=== PATIENT | female | born 1990 | race Caucasian/White ===

== ENCOUNTER 2023-07-25 09:26 | Outpatient (CLI) | payer OTHER, SELFPAY ==
--- NOTE | 2023-07-25 09:57 | USCV_ITS ---
Alexandra Miles Age: 32 Gender: F : 1990 Exam Date: 07/25/2023 10:21 Ordering Phys: Asiya Bowens NP Technologist: AURELIA [place] [facility] [place]: cp BP: 121 / 89 HR: 76 Rhythm: Sinus Technical Quality: Adequate MEASUREMENTS (Male / Female) Normal Values 2D ECHO LVOT Diameter 2.0 cm LV Ejection Fraction MOD 2C 71.9 % LV Ejection Fraction 2C AL 71.1 % LA Diameter 3.3 cm RA Systolic Volume 4C AL 50.6 ml RA Systolic Volume 4C MOD 48.0 ml LA Sys Volume AL 70.6 cm cubed LA Sys Volume Index AL 27.1 cm cubed/m squared Aorta at Sinotubular Diameter 2.5 cm IVC Diameter 1.8 cm M-MODE LA Ao Ratio MM 1.6 AV Cusp Separation MM 1.9 cm DOPPLER AV Peak Velocity 103.0 cm/s LVOT Peak Velocity 90.0 cm/s AV Area Cont Eq vti 2.9 cm squared AV Area Cont Eq pk 2.8 cm squared MV Peak Velocity 87.0 cm/s MV Area PHT 3.5 cm squared Mitral E to A Ratio 1.3 TR Peak Velocity 85.0 cm/s TR Peak Gradient 2.9 mmHg TV Peak E Velocity 82.0 cm/s Right Atrial Pressure 3.0 mmHg Pulmonary Artery Systolic Pressu 5.9 mmHg PV Peak Velocity 82.0 cm/s FINDINGS Left Ventricle Normal left ventricular size and systolic function, EF 71%. No regional wall motion abnormalities. Right Ventricle The right ventricle is normal in size and function. Right Atrium The right atrium is normal in size. Left Atrium The left atrium is normal in size. Mitral Valve No gross abnormalities noted Aortic Valve No gross abnormalities noted Tricuspid Valve No gross abnormalities noted Pulmonic Valve No gross abnormalities noted Pericardium Normal pericardium without effusion. Aorta Normal ascending aorta dimension. IVC Normal inferior vena cava. CONCLUSIONS Normal left ventricular size and systolic function, EF 71%. No regional wall motion abnormalities. Normal cardiac chamber sizes No gross valvular abnormalities. There is no pericardial effusion. There are no intracardiac masses. No similar previous studies are available for comparison Dr Amber Mtz MD [facility] (Electronically Signed) Final Date: 26 Jul 2023 20:17 S
== END 2023-07-25 09:27 | disposition home or self-care (01) ==
LOC: RAD 09:26
PROVIDERS: Visit Provider Nurse Practitioner Family
DX: R07.9 Chest pain, unspecified (principal)
CPT/HCPCS: 93306

== ENCOUNTER → 2023-10-14 10:59 | Outpatient (BNVA) | payer OTHER, SELFPAY | PROVIDERS: Referring Provider Nurse Practitioner Family; Visit Provider Internal Medicine Cardiovascular Disease | DX: R07.9 Chest pain, unspecified (principal) | CPT/HCPCS: 93005 ==

== ENCOUNTER 2023-12-26 11:48 | Outpatient (CLI) | payer OTHER, SELFPAY ==
[2023-12-26 12:00] VITALS: BMI 48.6
--- NOTE | 2023-12-26 12:02 | ECG_ITS ---
[facility] 2023[facility]26 Pat Name: Alexandra Miles Department: Room: Gender: Female Rn Travel: : 1990 Requested By: Valerie Alicia Order Number: [id number] Reading MD: VALERIE ALICIA Interpretive Statements Lung unchanged pre/post procedure; Intraprocedure shortess of breath; Symptoms resoled by discharge NOTE: Please note that this is the electrocardiogram portion of the Lexiscan/Sestamibi stress test. The perfusion scan will be documented separately. DATA: Baseline heart rate was 81 beats per minute. Baseline blood pressure was 144/77 millimeters of mercury. Target heart rate was 188. Maximum heart rate achieved was 149. which was 79% of the predicted target heart rate. Maximum blood pressure was 179/93 millimeters of mercury. The reason for ending the test was completion of the protocol. The patient did not experience any symptoms. ELECTROCARDIOGRAM: BASELINE: Sinus rhythm. Normal axis. Interventricular conduction delay, otherwise, no ST-T changes suggestive of ischemia noted. No arrhythmia noted. EXERCISE: After Lexiscan injection, no ST-T changes suggestive of ischemic noted. No arrhythmia noted. CONCLUSION: Please note due to baseline abnormality of the EKG specificity and sensitivity of the EKG portion of LexiScan MIBI stress test will be low 1. EKG not suggestive of ischemia 2. Lexiscan injection unremarkable. 3. Perfusion scan will be documented separately. Electronically Signed On 12-28-2023 14:49:03 CDT by VALERIE ALICIA [email or web address]
[2023-12-26 13:20] VITALS: BP 179/93; PULSE 93
== END 2023-12-26 11:49 | disposition home or self-care (01) ==
PROVIDERS: PCP Nurse Practitioner Family; Visit Provider Internal Medicine Cardiovascular Disease
DX: R07.9 Chest pain, unspecified (principal); R06.02 Shortness of breath
CPT/HCPCS: 93017

== ENCOUNTER → 2024-08-04 08:53 | Outpatient (BNVA) | payer OTHER, SELFPAY | PROVIDERS: PCP Nurse Practitioner Family; Visit Provider Physician Assistant | DX: M25.562 Pain in left knee (principal); M23.304 Other meniscus derangements, unspecified medial meniscus, left knee | CPT/HCPCS: 73560; 73565 ==

== ENCOUNTER 2024-08-04 14:12 | Outpatient (CLI) | payer OTHER, SELFPAY | END 2024-08-04 14:13 | disposition home or self-care (01) | LOC: SPT 14:12 | PROVIDERS: PCP Nurse Practitioner Family; Visit Provider Physician Assistant | DX: Z46.89 Encounter for fitting and adjustment of other specified devices (principal); M25.562 Pain in left knee | CPT/HCPCS: L1812 ==

== ENCOUNTER 2024-10-25 08:51 | Outpatient (CLI) | payer OTHER, SELFPAY ==
--- NOTE | 2024-10-25 09:00 | MR_ITS ---
WS: [id number] MRI LEFT KNEE HISTORY: derangement of left knee COMPARISON: Radiograph 08/04/2024 Anterior cruciate ligament: ACL appears intact. There is a small amount of fluid along the ACL but no tear. Posterior cruciate ligament: Intact. Medial collateral ligament: Intact. Posterior lateral corner structures: Intact. Medial menisci: Intact. Normal signal, size and shape. Lateral meniscus: Intact. Normal signal, size and shape. Extensor mechanism: Increased signal in the central distal quadriceps tendon. Suspect interstitial tear. There is no full-thickness tear. Majority of the tendon is intact. Patellar tendon is normal. No surrounding edema. Fluid and soft tissue: Small suprapatellar joint effusion. No Luong's cyst. Osseous and articular structures: Patellofemoral compartment: Mild diffuse chondromalacia. No underlying marrow edema. Medial compartment: No significant joint space narrowing. Cartilage is intact. No marrow edema or fracture. Lateral compartment: No significant joint space narrowing. Full-thickness 2 mm cartilage defect along the central lateral tibial plateau. No underlying marrow edema. MR/MR knee LT wo con* [id number] IMPRESSION: 1. No ACL tear. Suspect mild ACL sprain is there is a small amount of fluid an d mild thickening of the central ligament. 2. No meniscal tear. 3. Increased fluid in the central quadriceps tendon. No full-thickness tear. T his may be an interstitial tear but there is no associated edema or fluid. 4. Mild diffuse chondromalacia patella. 5. Full-thickness, 2 mm cartilage defect central lateral tibial plateau. No ma rrow edema.
== END 2024-10-25 08:52 | disposition home or self-care (01) ==
LOC: RAD 08:52
PROVIDERS: PCP Nurse Practitioner Family; Visit Provider Physician Assistant
DX: M23.304 Other meniscus derangements, unspecified medial meniscus, left knee (principal); M22.42 Chondromalacia patellae, left knee; M25.562 Pain in left knee; S82.122A Displaced fracture of lateral condyle of left tibia, initial encounter for closed fracture; X58.XXXA Exposure to other specified factors, initial encounter
CPT/HCPCS: 73721